=== PATIENT | female | born 1955 | race Native Hawaiian/Other Pacific Islander ===

== ENCOUNTER 2017-11-01 10:25 | Emergency (ER) | payer OTHER ==
[~2017-11-01] VITALS: Ht 162.6 cm; Wt 63.5 kg
[~2017-11-01 10:25] MED LIST: ALBU90OI INH; ALBU90OI6 INH; ALPR.5 PO; ALPR.5CR PO; AMIT10 PO; AMIT50 PO; AMLO10 PO; AMLO5 PO; ASPI325 PO; ASPI81CH PO; ASPI81EC PO; ATOR80 PO; BISA5EC PO; Baclofen10 MG PO; CHOL10002 PO; CIPR500 PO; CLON1 PO; CLOP75 PO; DIAZ2 PO; DIVA250EC PO; DOCU100 PO; DULO30 PO; Desyrel150 MG PO; Doxycycline150 MG PO; ENOX30I SC; ESOM20 PO; FENT50TP TOP; FLUT220OIA IH; GABA100 PO; GABA300 PO; GABA600 PO; GABA800 PO; HYDACE5 PO; HYDACE5325 PO; HYDCHL50 PO; HYDMOR2 PO; HYDR10 PO; LABE100 PO; LATUDA20 MG PO; LEVO750 PO; LEVSOD25 PO; LEVSOD50 PO; LIDO5TP TOP; LOSA50 PO; MARIJUANA; METCAR750 PO; METPHE10 PO; METPHE18ER PO; Mobic7.5 MG PO; NAPR500 PO; NEBI10 PO; NIAC500 PO; NIAC500ER PO; NITR.2TP TOP; Norco 7.5-3251 EACH PO; OLME20 PO; OLME40 PO; OMEP20ER PO; OXYC10ER PO; OXYC5 PO; Oxycodone-Apap1 EAC3; Oxycontin20 MG; PENVK500 PO; PREG50 PO; PROM25 PO; Percocet 10-321 EACH PO; SPIR25 PO; Synthroid25 MCG PO; TRAZ100 PO; TRAZ150T57 PO; Zofran Odt4 MG SL
[2017-11-01 10:42] LABS: BASOPHILS ABSOLUTE AUTO 0.06 K/mm3 (0.00-0.23); BASOPHILS PERCENT AUTO 1 % (0-2); EOSINOPHILS ABSOLUTE AUTO 0.05 K/mm3 (0.00-0.68); EOSINOPHILS PERCENT AUTO 1 % (0-6); Hematocrit 39.6 % (33.0-51.0); Hemoglobin 13.2 g/dL (11.5-16.0); IMMATURE GRAN ABSOLUTE AUTO 0.05 K/mm3 (0.00-0.10); IMMATURE GRAN PERCENT AUTO 1 % (0-1); LYMPHOCYTES ABSOLUTE AUTO 2.43 K/mm3 (0.84-5.20); LYMPHOCYTES PERCENT AUTO 23 % (21-46); MONOCYTES ABSOLUTE AUTO 0.55 K/mm3 (0.16-1.47); MONOCYTES PERCENT AUTO 5 % (4-13); Mean Corpuscular HGB 29.5 pg (26.0-34.0); Mean Corpuscular HGB Conc 33.3 g/dL (31.5-36.5); Mean Corpuscular Volume 89 fL (80-100); Mean Platelet Volume 8.7 fL (9.1-12.4); NEUTROPHILS PERCENT AUTO 71 % (41-73); Platelet Count 299 K/mm3 (150-400); RDW Coefficient Variation 13.2 % (11.7-14.2); RDW Standard Deviation 42.9 fL (35.1-46.3); Red Blood Cell Count 4.47 M/mm3 (3.80-5.20); White Blood Cell Count 10.74 K/mm3 (4.00-11.30)
[2017-11-01 11:01] LABS: Alanine Aminotransfer (ALT/SGP 41 U/L (12-78); Albumin, Blood 3.8 g/dL (3.4-5.0); Albumin/Globulin Ratio 1.1 (0.8-1.8); Alk Phos 101 U/L (50-136); Anion Gap 5 mmol/L (6-16); Aspartate Aminotrans (AST/SGOT 36 U/L (12-37); Bilirubin, Total 0.3 mg/dL (0.1-1.0); Blood Urea Nitrogen 7 mg/dL (8-24); Bun/Creatinine Ratio 10.3 (12.0-20.0); CO2, Blood 32 mmol/L (21-32); Calcium, Blood 8.9 mg/dL (8.5-10.1); Chloride, Blood 104 mmol/L (98-108); Creatinine, Blood 0.68 mg/dL (0.40-1.00); Globulin, Blood 3.6 g/dL (2.2-4.0); Glomerular Filtration Rate >60 (60-); Glucose, Blood 110 mg/dL (70-99); Potassium, Blood 3.7 mmol/L (3.5-5.5); Sodium, Blood 141 mmol/L (136-145); Total Protein, Blood 7.4 g/dL (6.4-8.2)
[2017-11-01] MEDS ORDERED: Naltrexone HCl50 MG PO (12:33)
[2017-11-01] MEDS ORDERED: QUET25 PO (12:34)
[2017-11-01] MEDS ORDERED: LINZESS145 MCG PO (12:34)
[2017-11-01] MEDS ORDERED: ALPR.25 PO (12:34)
[2018-07-10] MEDS ORDERED: CLON.1 PO (18:58)
[2018-07-10] MEDS ORDERED: ESCI10 PO (18:59)
[2018-07-10] MEDS ORDERED: ATOR80 PO (19:00)
[2018-07-10] MEDS ORDERED: IBUP600 PO (19:01)
[2018-07-10] MEDS ORDERED: Zantac150 MG PO (19:02)
[2018-07-10] MEDS ORDERED: PRAZ1 PO (19:04)
[2018-07-11] MEDS ORDERED: ONDA4ODT SL (10:48)
[2018-07-11] MEDS ORDERED: HYDR1TAB94 PO (10:50)
[2018-07-11] MEDS ORDERED: PROAIR RESPICL90 MCG INH (10:57)
[2018-07-11] MEDS ORDERED: QUETIAPINE FUMA50 MG PO (11:00)
[2018-07-11] MEDS ORDERED: Seroquel50 MG PO (11:01)
[2018-07-11] MEDS ORDERED: NEBI5 PO (11:04)
[2018-07-11] MEDS ORDERED: LINZESS145 MCG PO (11:06)
== END 2017-11-01 12:20 | disposition home or self-care (01) ==
LOC: ER 10:25
PROVIDERS: Emergency Medicine
DX: R07.9 Chest pain, unspecified (principal); R51 Headache; I10 Essential (primary) hypertension; Z88.8 Allergy status to other drugs, medicaments and biological substances; Z79.899 Other long term (current) drug therapy; Z79.82 Long term (current) use of aspirin; Z79.891 Long term (current) use of opiate analgesic; Z79.2 Long term (current) use of antibiotics; Z86.73 Personal history of transient ischemic attack (TIA), and cerebral infarction without residual deficits; F17.200 Nicotine dependence, unspecified, uncomplicated
CPT/HCPCS: 70450; 80053; 84484; 85025; 93005; 93010; 96361; 96374; 96375; 99284; J0360; J1170; J2405; J7030

== ENCOUNTER 2018-10-06 11:43 | Emergency (ER) | payer OTHER ==
[~2018-10-06] VITALS: Ht 160 cm; Wt 59.0 kg
[~2018-10-06 11:43] MED LIST changes: +ALPR.25 PO; +CLON.1 PO; +ESCI10 PO; +HYDR1TAB94 PO; +IBUP600 PO; +LINZESS145 MCG PO; +NEBI5 PO; +Naltrexone HCl50 MG PO; +ONDA4ODT SL; +PRAZ1 PO; +PROAIR RESPICL90 MCG INH; +QUET25 PO; +QUETIAPINE FUMA50 MG PO; +Seroquel50 MG PO; +Zantac150 MG PO
[2018-10-06 12:05] LABS: Calcium, Ionized (POC) 1.02 mmol/L (1.10-1.46); Chloride (POC) 98 mmol/L (98-108); Creatinine (POC) 1.7 mg/dL (0.6-1.0); Glucose (ISTAT POC) 239 mg/dL (70-99); Hemoglobin (POC) 9.2 g/dL (12.0-16.0); Potassium (POC) 2.5 mmol/L (3.5-5.5); Sodium (POC) 139 mmol/L (135-148); Total CO2 (POC) 18 mmol/L (21-32)
[2018-10-06 12:24] LABS: Albumin, Blood 2.2 g/dL (3.4-5.0); Albumin/Globulin Ratio 0.9 (0.8-1.8); Bilirubin, Total 0.4 mg/dL (0.1-1.0); Bun/Creatinine Ratio 6.5 (12.0-20.0); Calcium, Blood 7.5 mg/dL (8.5-10.1); Creatinine, Blood 1.53 mg/dL (0.40-1.00); Globulin, Blood 2.4 g/dL (2.2-4.0); Potassium, Blood 2.6 mmol/L (3.5-5.5); Total Protein, Blood 4.6 g/dL (6.4-8.2); Troponin I 0.114 ng/mL (0.000-0.040)
[2018-10-06 12:33] LABS: PCO2 Arterial 41.1 mmHg (35-45); PO2 Arterial 453 mmHg (80-100)
[2018-10-06 12:35] LABS: pH Blood Arterial 7.17 (7.35-7.45)
[2018-10-06 13:37] LABS: BASOPHILS ABSOLUTE AUTO 0.06 K/mm3 (0.00-0.23); BASOPHILS PERCENT AUTO 1 % (0-2); EOSINOPHILS ABSOLUTE AUTO 0.17 K/mm3 (0.00-0.68); EOSINOPHILS PERCENT AUTO 1 % (0-6); Hematocrit 30.1 % (33.0-51.0); Hemoglobin 8.8 g/dL (11.5-16.0); IMMATURE GRAN ABSOLUTE AUTO 0.42 K/mm3 (0.00-0.10); IMMATURE GRAN PERCENT AUTO 3 % (0-1); LYMPHOCYTES ABSOLUTE AUTO 5.83 K/mm3 (0.84-5.20); LYMPHOCYTES PERCENT AUTO 47 % (21-46); MONOCYTES ABSOLUTE AUTO 0.71 K/mm3 (0.16-1.47); MONOCYTES PERCENT AUTO 6 % (4-13); Mean Corpuscular HGB 28.7 pg (26.0-34.0); Mean Corpuscular HGB Conc 29.2 g/dL (31.5-36.5); Mean Corpuscular Volume 98 fL (80-100); NEUTROPHILS PERCENT AUTO 42 % (41-73); NRBC ABSOLUTE 0.04 K/mm3 (0.00-0.02); NRBC Auto 0.3 /100 WBC (0.0-0.2); Platelet Count 296 K/mm3 (150-400); RDW Coefficient Variation 13.4 % (11.7-14.2); Red Blood Cell Count 3.07 M/mm3 (3.80-5.20); White Blood Cell Count 12.49 K/mm3 (4.00-11.30)
== END 2018-10-06 15:46 ==
LOC: ER 11:43 → EDBD 11:43 → ICUW 13:27 → ER 13:27 → ICUW 15:46 → ER 15:46
PROVIDERS: Internal Medicine
DX: I46.9 Cardiac arrest, cause unspecified (principal)
CPT/HCPCS: 36415; 36600; 51702; 70450; 71045; 80047; 80053; 82803; 84484; 85014; 85025; 93005; 93010; 94002; 96365; 96366; 99291-25; 99292; J7030; J7060